=== PATIENT | female | born 1995 | race Caucasian/White ===

== ENCOUNTER 2017-09-11 00:55 | Emergency (ER) | payer SELFPAY | END 2017-09-11 04:00 | disposition left against medical advice (07) | LOC: FTE 00:55 | DX: Z53.21 Procedure and treatment not carried out due to patient leaving prior to being seen by health care provider (principal) ==

== ENCOUNTER 2017-09-12 07:19 | Emergency (ER) | payer OTHER ==
[2017-09-12] MEDS: ONDANSETRON (ODT) 4 MG TAB ODT (07:46)
[2017-09-12] MEDS: HYDROCODONE/APAP (5/325) TAB PO (07:46)
== END 2017-09-12 08:00 | disposition home or self-care (01) ==
LOC: FTE 07:19
DX: B08.5 Enteroviral vesicular pharyngitis (principal)
CPT/HCPCS: 99284; Z7502